=== PATIENT | female | born 1950 | race Native Hawaiian/Other Pacific Islander ===

== ENCOUNTER 2021-02-12 14:37 | Outpatient (CLI) | payer OTHER ==
[2021-02-12 14:55] LABS: PLATELET COUNT 195 K/uL (152-353)
[2021-02-12 15:10] LABS: POTASSIUM 3.3 mmol/L (3.6-5.2)
== END 2021-02-12 20:37 | disposition home or self-care (01) ==
LOC: LAB 14:37
PROVIDERS: ATTEND Nurse Practitioner Family
DX: I13.0 Hypertensive heart and chronic kidney disease with heart failure and stage 1 through stage 4 chronic kidney disease, or unspecified chronic kidney disease (principal); N18.31 Chronic kidney disease, stage 3a
CPT/HCPCS: 80053; 80061; 85027